=== PATIENT | male | born 2000 | race Two or more races ===

== ENCOUNTER 2021-09-25 15:04 | Emergency (ER) | payer OTHER ==
[2021-09-25] MEDS ORDERED: CEPHALEXIN500 MG PO (17:30)
== END 2021-09-25 17:46 | disposition home or self-care (01) ==
LOC: FER 15:04
DX: S61.214A Laceration without foreign body of right ring finger without damage to nail, initial encounter (principal); Z23 Encounter for immunization; Z28.310 Unvaccinated for COVID-19; W27.0XXA Contact with workbench tool, initial encounter; Y92.89 Other specified places as the place of occurrence of the external cause; Y99.0 Civilian activity done for income or pay
CPT/HCPCS: 73130; 90471; 90715